=== PATIENT | female | born 1940 | race Caucasian/White ===

== ENCOUNTER 2018-07-17 04:52 | Emergency (ER) | payer MEDICARE ==
[~2018-07-17] VITALS: Ht 162.6 cm; Wt 113.6 kg
[~2018-07-17 04:52] MED LIST: ACYC800T7 PO
[2018-07-17 04:58] VITALS: BP 164/100
[2018-07-17] MEDS ORDERED: ondansetron/PF 4mg/2ml inj IV ONE (05:05)
[2018-07-17] MEDS ORDERED: morphine 4 MG/ML inj SYRINge IV ONE (05:05)
[2018-07-17] MEDS ORDERED: OMEP40CA37 PO (05:10)
[2018-07-17] MEDS ORDERED: ALBU8HFA PO (05:10)
[2018-07-17] MEDS ORDERED: PROP10TA10 PO (05:10)
[2018-07-17] MEDS ORDERED: VITA100D6 PO (05:10)
[2018-07-17] MEDS ORDERED: SIMV20TA5 PO (05:10)
[2018-07-17] MEDS ORDERED: METF500T PO (05:10)
[2018-07-17] MEDS ORDERED: DOCU-28 PO (05:10)
[2018-07-17] MEDS ORDERED: levothyroxine PO (05:10)
[2018-07-17] MEDS ORDERED: CHOL10002 PO (05:10)
[2018-07-17] MEDS ORDERED: estradiol (05:10)
[2018-07-17] MEDS ORDERED: IBUP-1984 PO (05:10)
[2018-07-17] MEDS ORDERED: dexamethasone sod phosphate 10mg/ml inj IV STA (05:52)
[2018-07-17] MEDS ORDERED: traMADol 50MG tablet PO ONE (05:55)
[2018-07-17] MEDS ORDERED: TRAM50TA2 PO (05:55)
[2018-07-17] MEDS ORDERED: METH4TAB81 PO (05:55)
[2018-07-17] MEDS ORDERED: diazepam 5mg tablet PO ONE (06:30)
== END 2018-07-17 06:37 | disposition home or self-care (01) ==
LOC: ER 04:53
DX: M54.42 Lumbago with sciatica, left side (principal); Z88.6 Allergy status to analgesic agent; Z88.1 Allergy status to other antibiotic agents; Z88.5 Allergy status to narcotic agent; Z79.899 Other long term (current) drug therapy
CPT/HCPCS: 72100; 73502; 96374; 96375; 99284; J1100; J2270; J2405

== ENCOUNTER 2018-07-18 23:15 | Emergency (ER) | payer MEDICARE ==
[~2018-07-18] VITALS: Ht 162.6 cm; Wt 102.0 kg
[~2018-07-18 23:15] MED LIST changes: +ALBU8HFA PO; +CHOL10002 PO; +DOCU-28 PO; +IBUP-1984 PO; +METF500T PO; +METH4TAB81 PO; +OMEP40CA37 PO; +PROP10TA10 PO; +SIMV20TA5 PO; +TRAM50TA2 PO; +VITA100D6 PO; +estradiol; +levothyroxine PO
[2018-07-18 23:16] VITALS: BP 192/86
[2018-07-19] MEDS ORDERED: ondansetron 4mg rapidly disintigrating tab PO ONE (01:35)
[2018-07-19] MEDS ORDERED: OXYC-580 PO (01:35)
[2018-07-19] MEDS ORDERED: OXYcodone (OXYCONTIN) Ext Release 15 MG TAB.SR.12H PO ONE (01:35)
== END 2018-07-19 02:04 | disposition home or self-care (01) ==
LOC: ER 23:16
DX: G89.29 Other chronic pain (principal); M54.42 Lumbago with sciatica, left side; Z88.1 Allergy status to other antibiotic agents; Z88.6 Allergy status to analgesic agent; Z88.8 Allergy status to other drugs, medicaments and biological substances
CPT/HCPCS: 99283